=== PATIENT | male | born 1970 | race Caucasian/White ===

== ENCOUNTER → 2020-07-12 | Outpatient (CLI) | payer OTHER ==
--- NOTE | 2020-07-12 10:38 | KCIC ---
EXAM: Right shoulder, 3 views. HISTORY: Pain. COMPARISON: None. FINDINGS: 3 views of the right shoulder obtained. There is no fracture, dislocation or subluxation. T he cortex of the articular aspect of the distal clavicle is indistinct. IMPRESSION: 1. No acute osseous finding. 2. Indistinct cortex of the distal clavicle. The possibility of distal clavicular erosive changes is not excluded. Electronically signed by: Alma Joy MD (07/12/2020 10:36 AM) [id number]
== END ==
LOC: KCIC 10:15
PROVIDERS: ATTEND Family Medicine
DX: M25.511 Pain in right shoulder (principal); G89.29 Other chronic pain
CPT/HCPCS: 73030

== ENCOUNTER → 2020-10-11 | Day surgery (SDC) | payer OTHER ==
[~2020-10-11] VITALS: Ht 180.3 cm; Wt 100.0 kg
[~2020-10-11] MED LIST: ALLO100T PO; HYDR12.575 PO; IV RINGERS,LACTATED 1000ML 1,000 ML IV SCH; LIDOCAINE 2% PF 5 ML VIAL. ONE; PROPOFOL 10 MG/ML (20ML) VIAL. IV ONE
[2020-10-11 12:15] VITALS: BP 132/75
[2020-10-11 13:53] VITALS: BP 163/103
--- NOTE | 2020-10-14 17:06 | PATHOLOGY ---
[facility] Accession Number: [id number] . 01 Material submitted: . cecum - CECAL POLYP . 01 Clinical history: . SCREENING COLONOSCOPY . 02 Diagnosis: Colon biopsy, cecal polyp: - Tubular adenoma. - Hyperplastic mucosal-associated lymphoid aggregate. . ([facility]:mm; 10/14/2020) [facility] 10/14/2020 1102 Local . 02 Comment: There is no high grade dysplasia or evidence of malignancy. . ([facility]:mml; 10/14/2020) . 02 Electronically signed: . Amor Taylor MD, Pathologist NPI- [id number] . 01 Gross description: . The specimen is received in formalin, labeled "Alonso Cardenas A, cecal polyp". It consists of a bermudez polypoid soft tissue fragment measuring 0.4 x 0.3 x 0.2 cm. The specimen is entirely submitted between sponges in A1. ([facility]; 10/11/2020) [facility] 10/11/2020 1845 Local . 02 Pathologist provided ICD-10: D12.0 . 02 CPT . 542907 Specimen Comment: A courtesy copy of this report has been sent to [phone] Specimen Comment: Report sent to DR. CHAVARRIA Performed at: 01 [facility] [address], [place] [id number] MD Danny Flowers MD Phone: [phone] Performed at: 02 [facility] [address] [place], [place] [id number] MD Amor Taylor MD Phone: [phone]
== END | disposition home or self-care (01) ==
LOC: ENDOS 11:50
PROVIDERS: ATTEND Surgery
DX: Z12.11 Encounter for screening for malignant neoplasm of colon (principal); D12.0 Benign neoplasm of cecum; K57.30 Diverticulosis of large intestine without perforation or abscess without bleeding; K63.89 Other specified diseases of intestine; I10 Essential (primary) hypertension; Z79.899 Other long term (current) drug therapy; Z98.890 Other specified postprocedural states
CPT/HCPCS: 45380; 88305; J2704

== ENCOUNTER → 2020-11-01 | Outpatient (CLI) | payer OTHER ==
[2020-10-11 13:53] VITALS: BP 163/103
[~2020-11-01] MED LIST changes: +GADOTERATE 5 MMOL/10ML VIAL. INT ART ONE; +IOHEXOL 300 MG/ML 50 ML VIAL. INT ART ONE; -IV RINGERS,LACTATED 1000ML 1,000 ML IV SCH; +LIDOCAINE 1% Multi-Dose 20 ML VIAL. ID ONE; -LIDOCAINE 2% PF 5 ML VIAL. ONE; -PROPOFOL 10 MG/ML (20ML) VIAL. IV ONE
--- NOTE | 2020-11-01 12:45 | KCIC ---
Study: Fluoroscopically guided arthrogram of the right shoulder joint for MRI Indication: Chronic right shoulder pain. Contrast: Approximately 3 cc Omnipaque 300; 0.1 cc Clariscan Technique: A timeout was performed prior to beginning the procedure in order to confirm patient identity and lat erality of the injection. The risks, benefits and alternatives of the procedure were discussed. Utilizing sterile technique, fluoroscopic guidance and local anesthesia with 1% lidocaine, the right shoulder joint was accessed utilizing a 22-gauge, 3.5" spinal needle. Confirmation of needle position was obtained with a small amount of radiopaque contrast. Subsequently, approximately 12 cc of a mixt ure containing 15 cc saline, 5 cc lidocaine and 0.1 cc Clariscan was injected. There were no immediat e post procedure complications. Fluoroscopy time: 17 seconds Number of images obtained: 1 Impression: Technically successful fluoroscopic guided arthrogram of the right shoulder joint without immediate p ostprocedure complication. Electronically signed by: VERONICA MONTAGUE MD (11/01/2020 12:43 PM) [id number]
--- NOTE | 2020-11-01 12:57 | KCIC ---
STUDY: MRI arthrogram of the right shoulder INDICATION: Chronic right shoulder pain. COMPARISON: No previous MRI. TECHNIQUE: Multiplanar MR imaging of the right shoulder performed after the intra-articular injection of contrast material. The injection portion of the procedure is detailed in a separate report. FINDINGS: AC joint: Mild acromioclavicular joint arthrosis. Gadolinium-containing fluid mildly distending the s ubacromial subdeltoid bursa. Rotator cuff: High-grade tear of the supraspinatus leading edge at the footprint involving at least 7 5% cross sectional tendon thickness and appearing to be mostly bursal sided. The presence of contrast within the subacromial subdeltoid bursa could be related to a full-thickness perforation in this reg ion or potentially from a split injection. Just posterior to the leading edge, intermediate/borderlin e high-grade grade articular sided tear at the footprint involving approximately 50 percent tendon cr oss-sectional thickness on image 9 series 6. Intact infraspinatus and teres minor. Intermediate grade interstitial tear of the subscapularis on a background of tendinosis. Mild fatty infiltration at the upper aspect of the subscapularis. Labrum: SLAP tear extending to the posterior/superior quadrant, image 11 series 5. Long head biceps tendon: Medially subluxed into the subscapularis interstitial tear. Partial tearing of the tendon at the proximal bicipital groove and intra-articular. Cartilage: Chondral thinning at the medial humeral head. Bones: Tiny inferomedial humeral head osteophyte formation. Degenerative cystic change deep to the mcintosh praspinatus insertion and along the lateral wall of the bicipital groove. Impression: 1. High-grade tear of the supraspinatus leading edge at the footprint appearing to be mostly bursal s ided. There may be a full-thickness perforating component given the presence of gadolinium within the subacromial subdeltoid bursa though it is possible this relates to a split injection. Just posterior to the leading edge is an intermediate/borderline high-grade articular sided tear of the supraspinat us at the footprint with approximately 50 percent tendon involvement. Supraspinatus muscular bulk is maintained. 2. Subscapularis tendinosis and an intermediate grade interstitial tear which allows for medial sublu xation of the long head biceps into the tear defect. Partial tearing of the long head biceps at the i ntra-articular aspect extending into the proximal bicipital groove. 3. Subtle SLAP tear extending to the posterior/superior aspect. 4. Mild AC joint arthrosis and minimal early degenerative changes at the glenohumeral joint. Electronically signed by: VERONICA MONTAGUE MD (11/01/2020 12:54 PM) [id number]
== END | disposition home or self-care (01) ==
LOC: KCIC 10:32
PROVIDERS: ATTEND Orthopaedic Surgery
DX: M25.511 Pain in right shoulder (principal); M19.011 Primary osteoarthritis, right shoulder; S43.431A Superior glenoid labrum lesion of right shoulder, initial encounter; I10 Essential (primary) hypertension; Z79.899 Other long term (current) drug therapy; Z98.890 Other specified postprocedural states; X58.XXXA Exposure to other specified factors, initial encounter; Y93.89 Activity, other specified; Y92.89 Other specified places as the place of occurrence of the external cause; Y99.8 Other external cause status
CPT/HCPCS: 23350; 73222; 77002; A9575; J3490; Q9967